=== PATIENT | male | born 1960 | race Caucasian/White ===

== ENCOUNTER 2016-12-25 12:44 | Emergency (ER) | payer SELFPAY ==
[~2016-12-25] VITALS: Ht 175.3 cm; Wt 63.0 kg
[~2016-12-25 12:44] MED LIST: DIVA125T2 PO
[2016-12-25] MEDS ORDERED: LIDOCAINE 1%, 20ML ONE (13:00)
[2016-12-25] MEDS ORDERED: OXYcodone/APAP 5/325MG TABLET ONE (13:16)
[2016-12-25] MEDS ORDERED: CEFAZOLIN 1,000 MG ONE (13:16)
[2016-12-25] MEDS ORDERED: DIPH,PERTUSS(ACELL),TET VAC/PF 0.5 ML IM-VACC ONE ×2 (13:16→13:30)
[2016-12-25] MEDS ORDERED: LIDOCAINE 2%, 20ML SQ ONE (13:30)
[2016-12-25] MEDS ORDERED: OXYcodone/APAP 5/325MG TABLET PO ONE (13:30)
[2016-12-25] MEDS ORDERED: CEFAZOLIN 1,000 MG IM ONE (13:30)
[2016-12-25 15:15] VITALS: BP 143/68
== END 2016-12-25 15:17 | disposition home or self-care (01) ==
LOC: ED 15:00
DX: S60.451A Superficial foreign body of left index finger, initial encounter (principal); W45.8XXA Other foreign body or object entering through skin, initial encounter; W29.4XXA Contact with nail gun, initial encounter; Y93.89 Activity, other specified; Y92.89 Other specified places as the place of occurrence of the external cause; Y99.8 Other external cause status
CPT/HCPCS: 10120; 73130; 90471; 90472; 90715; 99285; J0690

== ENCOUNTER 2017-03-19 09:55 | Emergency (ER) | payer SELFPAY ==
[~2017-03-19] VITALS: Ht 175.3 cm; Wt 64.0 kg
[2017-03-19] MEDS ORDERED: ONDANSETRON 2MG/ML, 2ML ONE (11:27)
[2017-03-19] MEDS ORDERED: MORPHINE SULFATE 4 MG/ML, 1ML ONE ×2 (11:27→11:51)
[2017-03-19] MEDS ORDERED: FAMOTIDINE 20 MG/2 ML ONE (11:27)
[2017-03-19] MEDS ORDERED: ONDANSETRON 2MG/ML, 2ML IVPush ONE (11:30)
[2017-03-19] MEDS ORDERED: FAMOTIDINE 20 MG/2 ML IVP ONE (11:30)
[2017-03-19] MEDS ORDERED: SODIUM CHLORIDE 0.9% 1,000ML IVBOLUS ONE (11:30)
[2017-03-19] MEDS ORDERED: SODIUM CHLORIDE FLUSH 10ML SYR IVF ONE (11:30)
[2017-03-19] MEDS: MORPHINE SULFATE 4 MG/ML, 1ML IVPush PRN ×2 (11:32→11:53)
[2017-03-19 11:59] LABS: HEMATOCRIT 50.8 % (39.2-51.8); HEMOGLOBIN 17.2 g/dL (13.7-18.0); WHITE BLOOD COUNT 10.4 x10^3/uL (3.4-10)
[2017-03-19 12:09] LABS: ASPARTATE AMINO TRANSFERASE 26 U/L (15-37); BLOOD UREA NITROGEN 13 mg/dL (7-18)
[2017-03-19] MEDS ORDERED: PROMETHAZINE 25 MG/ML, 1ML ONE (14:25)
[2017-03-19] MEDS ORDERED: HYDROmorphone 1 MG/ML, 1ML ONE (14:26)
[2017-03-19] MEDS ORDERED: MAALOX/HYOSCYAMINE/LIDOCAINE 45 ML BTL ONE (14:26)
[2017-03-19] MEDS ORDERED: MAALOX/HYOSCYAMINE/LIDOCAINE 45 ML BTL PO ONE (14:30)
[2017-03-19] MEDS ORDERED: PROMETHAZINE 25 MG/ML, 1ML IM ONE (14:30)
[2017-03-19] MEDS ORDERED: HYDROmorphone 1 MG/ML, 1ML IV ONE (14:30)
[2017-03-19 14:58] VITALS: BP 157/67
== END 2017-03-19 15:16 | disposition home or self-care (01) ==
LOC: ED 13:30
DX: K29.20 Alcoholic gastritis without bleeding (principal); R11.2 Nausea with vomiting, unspecified; K86.0 Alcohol-induced chronic pancreatitis; E86.9 Volume depletion, unspecified
CPT/HCPCS: 36415; 76700; 80053; 81003; 83690; 84484; 85025; 85610; 85730; 96361; 96372; 96374; 96375; 99285; J1170; J2405; J2550; J7030; S0028